=== PATIENT | female | born 1980 | race Caucasian/White ===

== ENCOUNTER → 2020-08-10 | Outpatient (CLI) | payer OTHER ==
[~2020-08-10] MED LIST: CYMBALTA 30 MG30 MG PO; DIFLUCAN150 MG PO; ELAVIL 25 MG TA25 MG PO; FIORICET TAB1 EA PO; GABAPENTIN300 MG PO; IBUPROFEN800 MG PO; KEFLEX CAP 500500 MG PO; LINZESS290 MCG PO; LYRICA75 MG PO; NIASPAN500 MG PO; PERCOCET 10-321 EACH PO; VITAMIN C 500500 MG PO; ZANTAC150 MG PO
== END ==
LOC: KOH-I 08-02 13:45 → MRI 07:57
DX: M51.16 Intervertebral disc disorders with radiculopathy, lumbar region (principal); M47.26 Other spondylosis with radiculopathy, lumbar region; M48.061 Spinal stenosis, lumbar region without neurogenic claudication
CPT/HCPCS: 72148

== ENCOUNTER → 2020-08-12 | Outpatient (CLI) | payer OTHER ==
[2020-08-12 10:35] LABS: GLUCOSE,CSF 48 mg/dL (50-80); TOTAL PROTEIN,CSF 22 mg/dL (20-45)
[2020-08-12 11:08] LABS: WBC (AUTOMATED 1 10^3 (0-5)
[2020-08-12 11:12] LABS: WBC (AUTOMATED 1 10^3 (0-5)
[2020-08-13 16:14] LABS: CSF IGG INDEX 0.6 (0.0-0.7); CSF/SERUM ALB. INDEX 2 (0-8); IMMUNOGLOBULIN G, QN, SERUM 666 mg/dL (586-1602)
[2020-08-16 17:11] LABS: MYELIN BASIC PROTEIN, CSF 4.6 ng/mL (0.0-3.7)
== END ==
LOC: RAD 08:30
PROVIDERS: Psychiatry & Neurology Neurology
PROC: 009U3ZX Drainage of Spinal Canal, Percutaneous Approach, Diagnostic (ICD-10-PCS; principal; 2020-08-12)
DX: R51.9 Headache, unspecified (principal); E23.6 Other disorders of pituitary gland
CPT/HCPCS: 36415; 82040; 82784; 82945; 83873; 83916; 84157; 89051; G0463

== ENCOUNTER → 2020-12-20 | Outpatient (CLI) | payer OTHER | LOC: KOH-I 09:48 | DX: M79.671 Pain in right foot (principal) | CPT/HCPCS: 73630 ==